=== PATIENT | female | born 1960 | race Caucasian/White ===

== ENCOUNTER → 2016-11-16 | Outpatient (CLI) | payer OTHER ==
[~2016-11-16] MED LIST: ALPR1TAB2 PO; AMOX250C17 PO; CALCIUM+VIT D PO; CHLO1LIQ PO; CHOL20002 PO; CYCL1DRO EACHEYE; ESTR10TA PO; ESTR42.53 VG; ESZO3TAB9 PO; LACT1CAP37 PO; LUTE20TA PO; NORETHINDRONE PO; PILO5TAB PO; [UNRECOGNIZED DRUG - CODE] TP
== END | disposition home or self-care (01) ==
LOC: CFH 07:39
PROVIDERS: ATTEND Obstetrics & Gynecology Female Pelvic Medicine and Reconstructive Surgery
DX: Z12.31 Encounter for screening mammogram for malignant neoplasm of breast (principal)
CPT/HCPCS: G0202

== ENCOUNTER → 2017-11-19 | Outpatient (CLI) | payer OTHER ==
[~2017-11-19] MED LIST changes: +ESZO3TAB28 PO; -ESZO3TAB9 PO
== END ==
LOC: CFH 07:30
PROVIDERS: ATTEND Obstetrics & Gynecology Female Pelvic Medicine and Reconstructive Surgery
DX: Z12.31 Encounter for screening mammogram for malignant neoplasm of breast (principal)
CPT/HCPCS: 77063; 77067

== ENCOUNTER → 2017-12-18 | Outpatient (CLI) | payer SELFPAY | END | disposition home or self-care (01) | LOC: CFH 12:46 | PROVIDERS: ATTEND Obstetrics & Gynecology Female Pelvic Medicine and Reconstructive Surgery | DX: N64.9 Disorder of breast, unspecified (principal); R92.2 Inconclusive mammogram | CPT/HCPCS: 76642 ==

== ENCOUNTER 2018-12-19 08:18 | Outpatient (CLI) | payer OTHER ==
[~2018-12-19 08:18] MED LIST changes: -CHOL20002 PO; +CHOL200052 PO
== END 2018-12-19 23:59 | disposition home or self-care (01) ==
LOC: CFH 08:18
PROVIDERS: ATTEND Obstetrics & Gynecology Female Pelvic Medicine and Reconstructive Surgery
DX: Z12.31 Encounter for screening mammogram for malignant neoplasm of breast (principal)
CPT/HCPCS: 77063; 77067